=== PATIENT | female | born 1995 | race Two or more races ===

== ENCOUNTER 2020-04-15 15:08 | Emergency (ER) | payer MEDICAID ==
[~2020-04-15] VITALS: Ht 160 cm; Wt 72.6 kg
--- NOTE | 2020-04-15 15:15 | NUR ---
Dr Valderrama at the bedside for MSE.
[2020-04-15] MEDS ORDERED: IBUPROFEN 600 MG TABLET ONE (15:22)
[2020-04-15] MEDS ORDERED: IBUPROFEN 600 MG TABLET PO ONE (15:30)
--- NOTE | 2020-04-15 15:39 | NUR ---
Pt is calm now, Dr Valderrama re evaluating the pt.
--- NOTE | 2020-04-15 15:41 | NUR ---
Cleaned abrasion on Rt FA and LLE w/ NS, pt tolorated well.
--- NOTE | 2020-04-15 16:00 | NUR ---
Patient discharged to home in stable condition. Written and verbal after care instructions given. Patient verbalizes understanding of instructions. Stressed follow up or return to ER for worsening s/s.
[2020-04-15 16:02] VITALS: BP 116/70
== END 2020-04-15 16:03 | disposition home or self-care (01) ==
LOC: ER 15:09
DX: M25.511 Pain in right shoulder (principal); V43.52XA Car driver injured in collision with other type car in traffic accident, initial encounter; Y92.410 Unspecified street and highway as the place of occurrence of the external cause
CPT/HCPCS: 73030; A4663